=== PATIENT | male | born 1980 | race Caucasian/White ===

== ENCOUNTER 2025-05-13 13:10 | Outpatient (CLI) | payer MEDICARE, SELFPAY ==
--- OUTSIDE RECORDS SUMMARY | 2018-12-02 05:00 | XMS_ITS | Encounter Summary ---
Author Organization [place] [address] Care Team Providers Care Claims Processor Name Role Phone Clint Stauffer MD Primary Care Provider [phone] Solomon Díaz MD Unavailable [phone] Encounter Details Date Type Department Care Team (Late st Contact Info) Description 12/02/2018 5:00 AM EDT Hospital Encounter [facility] Referral Lab [address] [place] [id number] Social History Tobacco Use Types Packs/Day Years Used Date Smoking Tobacco: Former Cigarettes 1 13 1 - 06/12/2008 Smokeless Tobacco: Never Alcohol Use Standard Drinks/Week Comments Yes 0 (1 standard drink = 0.6 oz pur e alcohol) occasionally PHQ-2 Answer Date Recorded PHQ-2 Total Score 6 08/24/2023 Sex and Gender Information Value Date Recorded Sex Assigned at Not on file Legal Sex Male 8:46 PM EDT Gender Identity Not on file Sexual Orientation Not on file COVID-19 Exposure Response Date Recorded In the last 10 days, have yo u been in contact with someone who was confirmed or suspected to have Coronavirus/COVID-19? No / Unsure 02/09/2023 8:07 AM EDT documented as of this encounter Functional Status * Is the person deaf or does he/she have serious difficulty hearing? Answer Date of Assessment Author No 08/03/2016 7:03 PM EST Raman, J ennifer M, RN * Is the person blind or does he/she have serious difficulty seeing even when wearing glasses? Answer Date of Assessment Author No 08/03/2016 7:03 PM Lakeshia Campos RN * Does this person have serious difficulty walking or climbing stairs? Answer Date of Assessment Author No 08/03/2016 7:03 PM Lakeshia Campos RN * Does this person have difficulty dressing or bathing? Answer Date of Assessment Author No 08/03/2016 7:03 PM Lakeshia Campos RN * Because of a physical, mental or emotional condition, does this person have difficulty doing errands alone such as visiting a doctor's office or shopping? Answer Date of Assessment Author No 08/03/2016 7:03 PM Lakeshia Campos RN * Question Answer Date of Assessment Author Little interest or pleasure in doing things 3 08/24/2023 12:23 PM Gabino Acharya LCSW Feeling down, depressed, or hopeless 3 08/24/2023 12:23 PM Gabino Acharya LCSW PHQ-2 Total Score 6 08/24/2023 12:23 PM Emily Acharya LCSW Trouble falling or staying asleep, or sleeping too much 3 08/24/2023 12:23 PM Emily Kaplan LCSW Feeling tired or having ly le energy 3 08/24/2023 12:23 PM Gabino Acharya LCSW Poor appetite or overeating 1 08/24/2023 12 :23 PM Emily Acharya LCSW Feeling bad about yourself - or that you are a failure or have let yourself or your family down 3 08/24/2023 12:23 PM Gabino Acharya LCSW Trouble concentrating on things, such as reading the newspaper or watching television 2 08/24/2023 12:23 PM Gabino Acharya, OPTIMIZATION MANAGER Moving or speaking so slowly that other people could have noticed. Or the opposite - being so fidgety or restless that you have been moving around a lot more than usual 0 08/24/2023 12:23 PM EST Mergent yokasta, Emily R, OPTIMIZATION MANAGER Thoughts that you would be better off , or of hurting yourself in some way 0 08/24/2023 12:23 PM EST Rolando Garcia, OPTIMIZATION MANAGER PHQ-9 Total Score 18 08/24/2023 12:23 PM EST Emily Garcia, OPTIMIZATION MANAGER * Question Answer Date of Assessment Author Feeling Nervous, Anxious, or on Edge 3 08/24/2023 12:24 PM EST Jose Gabino on R, OPTIMIZATION MANAGER Not Being Able to Stop or Control Worrying 3 08/24/2023 12:24 PM EST Mergenthal Gabino on R, OPTIMIZATION MANAGER Worrying too Much About Different Things 3 08/24/2023 12:24 PM EST Costantyokasta Gabino on R, OPTIMIZATION MANAGER Trouble Relaxing 3 08/24/2023 12:24 PM EST Emily Garcia, OPTIMIZATION MANAGER Being so Restless That it is Hard to Sit Still 3 08/24/2023 12:24 PM EST Gabino Garcia on R, OPTIMIZATION MANAGER Becoming Easily Annoyed or Irritable 1 08/24/2023 12:24 PM EST Mergentyokasta Gabino on R, OPTIMIZATION MANAGER Feeling Afraid as if Something Awful Might Happen 3 08/24/2023 12:24 PM EST Emily Martines, OPTIMIZATION MANAGER TIANA-7 Total Score 19 08/24/2023 12:24 PM EST Emily Garcia, OPTIMIZATION MANAGER * Suicide Severity Rating Answer Date of Assessment Author No Risk 07/26/2024 4:07 PM Sondra Saab RN * [place] Suicide Severity Rating Scale (Q shift for moderate and high) Question Answer Date of Assessment Author 1. In the past month, have y ou wished you were or wished you could go to sleep and not wake up? 0 07/26/2024 4:07 PM Sondra Samano RN 2. In the past month, have y ou actually had any thoughts of killing yourself? (If no, skip to question 6) 0 07/26/2024 4:07 PM Sondra Saab RN 6. Have you ever done anythi ng, started to do anything, or prepared to do anything to end your life? 0 07/26/2024 4:07 PM Sondra Saab RN documented as of this encounter Mental Status * Because of a physical, mental or emotional condition, does this person have serious difficulty concentrating, remembering or making decisions? Answer Entry Date Author No 08/03/2016 7:03 PM Lakeshia Campos RN documented in this encounter Plan of Treatment Upcoming Encounters Date Type Department Care Team (Late st Contact Info) Description 07/02/2025 1:20 PM EST Telemedicine [facility] Diabetes [place] [address] [employer] [facility] [address] [place] [phone] Myriam Samuel MD [address] [employer] [facility] [address] [place] [phone] documented as of this encounter Goals Goal Patient Goal Type Associated Problems Recent Progress Patient-Stated? Author Blood Pressure < 140/90 Blood Pressure 132/84(2024 9:19 AM EDT) No Madeline Wang LPN Maintain a healthy diet, exercise regularly and maintain an ideal body weight General No Lida Dye, RN Stay Tobacco Free Lifestyle No Lida Dye RN documented as of this encounter Results * (ABNORMAL) COMPREHENSIVE METABOLIC PANEL (12/02/2018 5:27 AM EDT) Sodium 140 136 - 145 mmol/L 12/02/2018 8:58 AM EDT [facility] Potassium 4.7 3.5 - 5.0 mmol/L 12/02/2018 8:58 AM EDT [facility] Chloride 99 98 - 107 mmol/L 12/02/2018 8:58 AM EDT [facility] Total CO2 31(H) 22 - 29 mmol/L 12/02/2018 8:58 AM EDT [facility] Anion Gap 10 7 - 16 mmol/L 12/02/2018 8:58 AM EDT [facility] Calcium 9.8 8.6 - 10.4 mg/dL 12/02/2018 8:58 AM EDT [facility] Glucose Lvl 67(L) 74 - 100 mg/dL 12/02/2018 8:58 AM EDT [facility] BUN 17 6 - 20 mg/dL 12/02/2018 8:58 AM EDT [facility] Creatinine 0.92 0.67 - 1.30 mg/dL 12/02/2018 8:58 AM EDT [facility] Albumin 4.1 3.5 - 5.2 gm/dL 12/02/2018 8:58 AM EDT [facility] Total Protein 6.8 6.4 - 8.3 gm/dL 12/02/2018 8:58 AM EDT [facility] Bili Total 0.5 0.1 - 1.4 mg/dL 12/02/2018 8:58 AM EDT [facility] ALT 148(H) <=41 IU/L 12/02/2018 8:58 AM EDT [facility] AST 79(H) <=40 IU/L 12/02/2018 8:58 AM EDT [facility] Alk Phos 69 40 - 129 IU/L 12/02/2018 8:58 AM EDT [facility] GFR Afr Am 121 >=60 mL/min/1.7 3 m2 12/02/2018 8:58 AM EDT [facility] GFR Non Afr Am 104 >=60 mL/min/1.7 3 m2 12/02/2018 8:58 AM EDT [facility] Comment: This estimated GFR was calculated using CKD-EPI equation which is modified based on ethnicity for Non Americans and Americans. Both results are reported since it is not always possible to determine the patient's ethnicity. This equation should only be used for individuals 18 and older. It has not been validated for use with the elderly (>70 years), women, or in some racial or ethnic subgroups, such as Hispanics. The equation will be less accurate in people with differences in nutritional status or muscle mass. Blood 12/02/2018 5:27 AM EDT 12/02/2018 8:07 AM EDT us U Unknown CHEMISTRY ORDERABLES Final Resul t [facility] , [address] [place] [id number] documented in this encounter Visit Diagnoses Not on filedocumented in this encounter Care Teams Claims Processor Relationship Specialty Start Date End Date Clint Stauffer MD [address] [place] [address] PCP - General 08/20/10 Solomon Díaz MD [address] [place] [address] Internal Medicine-Gastroenterolog y 03/29/13 documented as of this encounter
--- OUTSIDE RECORDS SUMMARY | 2018-12-02 05:00 | XMS_ITS | Encounter Summary ---
Author Organization [place] [address] Care Team Providers Care Taxation Economist Name Role Phone Clint Stauffer MD Primary Care Provider [phone] Solomon Díaz MD Unavailable [phone] Encounter Details Date Type Department Care Team (Late st Contact Info) Description 12/02/2018 5:00 AM EDT Hospital Encounter [facility] Referral Lab [address] [place] [id number] Social History Tobacco Use Types Packs/Day Years [...] television 2 08/24/2023 12:23 PM Gabino Acharya, ASSET PROTECTION PROFESSIONAL Moving or speaking so slowly that other people could have noticed. Or the opposite - being so fidgety or restless that you have been moving around a lot more than usual 0 08/24/2023 12:23 PM EST Mergent yokasta, Emily R, ASSET PROTECTION PROFESSIONAL Thoughts that you would be better off , or of hurting yourself in some way 0 08/24/2023 12:23 PM EST Rolando Garcia, ASSET PROTECTION PROFESSIONAL PHQ-9 Total Score 18 08/24/2023 12:23 PM EST Emily Garcia, ASSET PROTECTION PROFESSIONAL * Question Answer Date of Assessment Author Feeling Nervous, Anxious, or on Edge 3 08/24/2023 12:24 PM EST Jose Gabino on R, ASSET PROTECTION PROFESSIONAL Not Being Able to Stop or Control Worrying 3 08/24/2023 12:24 PM EST Mergenthal Gabino on R, ASSET PROTECTION PROFESSIONAL Worrying too Much About Different Things 3 08/24/2023 12:24 PM EST Costantyokasta Gabino on R, ASSET PROTECTION PROFESSIONAL Trouble Relaxing 3 08/24/2023 12:24 PM EST Emily Garcia, ASSET PROTECTION PROFESSIONAL Being so Restless That it is Hard to Sit Still 3 08/24/2023 12:24 PM EST Gabino Garcia on R, ASSET PROTECTION PROFESSIONAL Becoming Easily Annoyed or Irritable 1 08/24/2023 12:24 PM EST Mergentyokasta Gabino on R, ASSET PROTECTION PROFESSIONAL Feeling Afraid as if Something Awful Might Happen 3 08/24/2023 12:24 PM EST Emily Martines, ASSET PROTECTION PROFESSIONAL TIANA-7 Total Score 19 08/24/2023 12:24 PM EST Emily Garcia, ASSET PROTECTION PROFESSIONAL * Suicide Severity Rating Answer Date of Assessment Author No Risk 07/26/2024 4:07 PM Sondra Saab RN * [place] Suicide Severity Rating Scale (Q shift for [...] Info) Description 07/02/2025 1:20 PM EST Telemedicine [facility] Diabetes [place] [address] [address] Myriam Samuel MD [address] [address] documented as of this encounter Goals Goal Patient Goal Type Associated Problems Recent Progress Patient-Stated? Author Blood Pressure < 140/90 Blood Pressure 132/84(2024 9:19 AM EDT) No Madeline Wang LPN Maintain a healthy diet, exercise regularly and maintain an ideal body weight General No Lida Dye, RN Stay Tobacco Free Lifestyle No Lida Dye RN documented as of this encounter Results * PREALBUMIN (12/02/2018 5:27 AM EDT) Prealbumin 32.6 20.0 - 40.0 mg/dL 12/02/2018 9:00 AM EDT I AM AT Blood 12/02/2018 5:27 AM EDT 12/02/2018 8:07 AM EDT us U Unknown CHEMISTRY ORDERABLES Final Resul t I AM AT [address], [place] [address] documented in this encounter Visit Diagnoses Not on filedocumented in this encounter Care Teams Taxation Economist Relationship Specialty Start Date End Date Clint Stauffer MD [address] [place] [address] PCP - General 08/20/10 Solomon Díaz MD [address] [place] [address] Internal Medicine-Gastroenterolog y 03/29/13 documented as of this encounter
--- OUTSIDE RECORDS SUMMARY | 2018-12-06 09:25 | XMS_ITS | Encounter Summary ---
Author Organization [place] [address] Care Team Providers Care Lead Quality Control Technician Name Role Phone Clint Stauffer MD Primary Care Provider [phone]- [phone] Solomon Díaz MD Unavailable [phone] Encounter Details Date Type Department Care Team (Late st Contact Info) Description 12/06/2018 9:25 AM EDT Hospital Encounter [facility] Referral Lab [address] [place] [id number] Social History Tobacco Use Types Packs/Day Years [...] television 2 08/24/2023 12:23 PM Gabino Acharya, DIRECTOR EMPLOYEE COMMUNICATIONS Moving or speaking so slowly that other people could have noticed. Or the opposite - being so fidgety or restless that you have been moving around a lot more than usual 0 08/24/2023 12:23 PM EST Mergent yokasta, Emily R, DIRECTOR EMPLOYEE COMMUNICATIONS Thoughts that you would be better off , or of hurting yourself in some way 0 08/24/2023 12:23 PM EST Rolando Garcia, DIRECTOR EMPLOYEE COMMUNICATIONS PHQ-9 Total Score 18 08/24/2023 12:23 PM EST Emily Garcia, DIRECTOR EMPLOYEE COMMUNICATIONS * Question Answer Date of Assessment Author Feeling Nervous, Anxious, or on Edge 3 08/24/2023 12:24 PM EST Jose Gabino on R, DIRECTOR EMPLOYEE COMMUNICATIONS Not Being Able to Stop or Control Worrying 3 08/24/2023 12:24 PM EST Mergenthal Gabino on R, DIRECTOR EMPLOYEE COMMUNICATIONS Worrying too Much About Different Things 3 08/24/2023 12:24 PM EST Costantyokasta Gabino on R, DIRECTOR EMPLOYEE COMMUNICATIONS Trouble Relaxing 3 08/24/2023 12:24 PM EST Emily Garcia, DIRECTOR EMPLOYEE COMMUNICATIONS Being so Restless That it is Hard to Sit Still 3 08/24/2023 12:24 PM EST Gabino Garcia on R, DIRECTOR EMPLOYEE COMMUNICATIONS Becoming Easily Annoyed or Irritable 1 08/24/2023 12:24 PM EST Mergentyokasta Gabino on R, DIRECTOR EMPLOYEE COMMUNICATIONS Feeling Afraid as if Something Awful Might Happen 3 08/24/2023 12:24 PM EST Emily Martines, DIRECTOR EMPLOYEE COMMUNICATIONS TIANA-7 Total Score 19 08/24/2023 12:24 PM EST Emily Garcia, DIRECTOR EMPLOYEE COMMUNICATIONS * Suicide Severity Rating Answer Date of Assessment Author No Risk 07/26/2024 4:07 PM Sondra Saab RN * [place] Suicide Severity Rating Scale (Q shift for [...] Info) Description 07/02/2025 1:20 PM EST Telemedicine [facility] Diabetes [place] [address] [employer] [facility] [address] [place] [address] Myriam Samuel MD [address] [employer] [facility] [address] [place] [phone] documented as of this encounter Goals [...] as of this encounter Results * (ABNORMAL) CBC WITH DIFF (12/06/2018 11:05 AM EDT) WBC 13.5(H) 3.7 - 10.3 x10(3)/mcL 12/06/2018 12:46 PM EDT [facility] RBC 5.01 4.60 - 6.10 x10(6)/mcL 12/06/2018 12:46 PM EDT [facility] Hgb 15.4 13.7 - 17.5 g/dL 12/06/2018 12:46 PM EDT [facility] Hct 45.0 40.0 - 51.0 % 12/06/2018 12:46 PM EDT [facility] MCV 89.8 79.0 - 98.0 fL 12/06/2018 12:46 PM EDT [facility] MCH 30.7 26.0 - 32.0 pg 12/06/2018 12:46 PM EDT [facility] MCHC 34.2 30.7 - 35.5 g/dL 12/06/2018 12:46 PM EDT [facility] RDW 12.3 <=14.9 % 12/06/2018 12:46 PM EDT [facility] Platelet 442(H) 155 - 369 x10(3)/mcL 12/06/2018 12:46 PM EDT [facility] MPV 9.3 8.8 - 12.5 fL 12/06/2018 12:46 PM EDT [facility] Neut Percent 62.8 % 12/06/2018 12:46 PM EDT [facility] Comment:Neutrophils equals s egs plus bands Imm Gran% 1.0 % 12/06/2018 12:46 PM EDT [facility] Comment:Automated count of m etamyelocytes, myelocytes and promyelocytes. Lymph Percent 24.4 % 12/06/2018 12:46 PM EDT [facility] Sampson Percent 9.6 % 12/06/2018 12:46 PM EDT [facility] Eos Percent 1.7 % 12/06/2018 12:46 PM EDT [facility] Baso Percent 0.5 % 12/06/2018 12:46 PM EDT [facility] Neut # 8.5(H) 1.6 - 6.1 x10(3)/mcL 12/06/2018 12:46 PM EDT [facility] Comment:Neutrophils equals s egs plus bands IMMGRAN# 0.1 0.0 - 0.1 x10(3)/mcL 12/06/2018 12:46 PM EDT [facility] Comment:Automated count of m etamyelocytes, myelocytes and promyelocytes. An absolute IG <0.1 is reported as 0.0. Lymph # 3.3 1.2 - 3.9 x10(3)/mcL 12/06/2018 12:46 PM EDT [facility] Sampson # 1.3(H) 0.3 - 0.9 x10(3)/mcL 12/06/2018 12:46 PM EDT [facility] Eos# 0.2 0.0 - 0.5 x10(3)/mcL 12/06/2018 12:46 PM EDT [facility] # 0.1 0.0 - 0.1 x10(3)/mcL 12/06/2018 12:46 PM EDT [facility] Venipuncture / Unknown 12/06/2018 11:05 AM EDT 12/06/2018 12:35 PM EDT us U Unknown HEMATOLOGY ORDERABLES Final Resu lt [facility] [address] [facility] , [place] [address] documented in this encounter Visit Diagnoses Not on filedocumented in this encounter Care Teams Lead Quality Control Technician Relationship Specialty Start Date End Date Clint Stauffer MD [address] [place] [address] PCP - General 08/20/10 Solomon Díaz MD [address] [place] [address] Internal Medicine-Gastroenterolog y 03/29/13 documented as of this encounter
--- OUTSIDE RECORDS SUMMARY | 2018-12-07 14:55 | XMS_ITS | Encounter Summary ---
Author Organization [place] [address] Care Team Providers Care Php Architect Name Role Phone Clint Stauffer MD Primary Care Provider [phone]- [phone] Solomon Díaz MD Unavailable [phone] Encounter Details Date Type Department Care Team (Late st Contact Info) Description 12/07/2018 2:55 PM EDT Hospital Encounter [facility] Referral Lab [address] [place] [id number] Social History Tobacco Use Types Packs/Day Years [...] television 2 08/24/2023 12:23 PM Gabino Acharya, REPLANTING MACHINE CREW Moving or speaking so slowly that other people could have noticed. Or the opposite - being so fidgety or restless that you have been moving around a lot more than usual 0 08/24/2023 12:23 PM EST Mergent yokasta, Emily R, REPLANTING MACHINE CREW Thoughts that you would be better off , or of hurting yourself in some way 0 08/24/2023 12:23 PM EST Rolando Garcia, REPLANTING MACHINE CREW PHQ-9 Total Score 18 08/24/2023 12:23 PM EST Emily Garcia, REPLANTING MACHINE CREW * Question Answer Date of Assessment Author Feeling Nervous, Anxious, or on Edge 3 08/24/2023 12:24 PM EST Jose Gabino on R, REPLANTING MACHINE CREW Not Being Able to Stop or Control Worrying 3 08/24/2023 12:24 PM EST Mergenthal Gabino on R, REPLANTING MACHINE CREW Worrying too Much About Different Things 3 08/24/2023 12:24 PM EST Costantyokasta Gabino on R, REPLANTING MACHINE CREW Trouble Relaxing 3 08/24/2023 12:24 PM EST Emily Garcia, REPLANTING MACHINE CREW Being so Restless That it is Hard to Sit Still 3 08/24/2023 12:24 PM EST Gabino Garcia on R, REPLANTING MACHINE CREW Becoming Easily Annoyed or Irritable 1 08/24/2023 12:24 PM EST Mergentyokasta Gabino on R, REPLANTING MACHINE CREW Feeling Afraid as if Something Awful Might Happen 3 08/24/2023 12:24 PM EST Emily Martines, REPLANTING MACHINE CREW TIANA-7 Total Score 19 08/24/2023 12:24 PM EST Emily Garcia, REPLANTING MACHINE CREW * Suicide Severity Rating Answer Date of Assessment Author No Risk 07/26/2024 4:07 PM Sondra Saab RN * [place] Suicide Severity Rating Scale (Q shift for [...] end your life? 0 07/26/2024 4:07 PM EST Sondra Gunter RN documented as of this encounter Mental Status * Because of a physical, mental or emotional condition, does this person have serious difficulty concentrating, remembering or making decisions? Answer Entry Date Author No 08/03/2016 7:03 PM Lakeshia Campos RN documented in this encounter Plan of Treatment Upcoming Encounters Date Type Department Care Team (Late st Contact Info) Description 07/02/2025 1:20 PM EST Telemedicine [facility] Diabetes [place] [address] [facility] [address] [place] [phone] Myriam Samuel MD [address] [phone] documented as of this encounter [...] documented as of this encounter Results * URINE CULTURE (NO STAIN) (12/07/2018 3:30 PM EDT) Culture No growth at 30 hours. 12/09/2018 8:16 AM EDT [facility] Urine 12/07/2018 3:30 PM EDT 12/07/2018 10:49 PM EDT us U Unknown MICROBIOLOGY - GENERAL ORDERABLE S Final Result [facility] [address] [facility] [address], [place] [address] documented in this encounter Visit Diagnoses Not on filedocumented in this encounter Care Teams Php Architect Relationship Specialty Start Date End Date Clint Stauffer MD [address] [place] [address] PCP - General 08/20/10 Solomon Díaz MD [address] [place] [address] Internal Medicine-Gastroenterolog y 03/29/13 documented as of this encounter
--- OUTSIDE RECORDS SUMMARY | 2018-12-07 14:55 | XMS_ITS | Encounter Summary ---
Author Organization [place] [address] Care Team Providers Care Seafood Harvester Name Role Phone Clint Stauffer MD Primary Care Provider [phone] Solomon Díaz MD Unavailable [phone] Encounter Details Date Type Department Care Team (Latest Contact Info) Description 12/07/2018 2:55 PM EDT Hospital Encounter [facility] Referral Lab [address] [place] [address] Routine general medical examination at health care facility (Primary Dx) Social History Tobacco Use Types Packs/Day Years [...] 08/03/2016 7:03 PM Lakeshia Campos RN * Is the person blind or [...] or hopeless 3 08/24/2023 12:23 PM Gabino Acharya, ENERGY CROP FARMER PHQ-2 Total Score 6 08/24/2023 12:23 PM [...] family down 3 08/24/2023 12:23 PM Gabino Acharya, ENERGY CROP FARMER Trouble concentrating on things, such as reading the newspaper or watching television 2 08/24/2023 12:23 PM Gabino Acharya R, ENERGY CROP FARMER Moving or speaking so slowly that other people could have noticed. Or the opposite - being so fidgety or restless that you have been moving around a lot more than usual 0 08/24/2023 12:23 PM EST Emily Martines R, ENERGY CROP FARMER Thoughts that you would be better off , or of hurting yourself in some way 0 08/24/2023 12:23 PM EST Rolando Garcia, ENERGY CROP FARMER PHQ-9 Total Score 18 08/24/2023 12:23 PM EST Emily Garcia, ENERGY CROP FARMER * Question Answer Date of Assessment Author Feeling Nervous, Anxious, or on Edge 3 08/24/2023 12:24 PM EST Mergenthal Gabino on R, ENERGY CROP FARMER Not Being Able to Stop or Control Worrying 3 08/24/2023 12:24 PM EST Mergenthal, Gabino on R, ENERGY CROP FARMER Worrying too Much About Different Things 3 08/24/2023 12:24 PM EST Costanthal Gabino on R, ENERGY CROP FARMER Trouble Relaxing 3 08/24/2023 12:24 PM EST Emily Garcia, ENERGY CROP FARMER Being so Restless That it is Hard to Sit Still 3 08/24/2023 12:24 PM EST Jose Gabino on R, ENERGY CROP FARMER Becoming Easily Annoyed or Irritable 1 08/24/2023 12:24 PM EST Mergenthal, Gabino on R, ENERGY CROP FARMER Feeling Afraid as if Something Awful Might Happen 3 08/24/2023 12:24 PM EST Emily Martines, ENERGY CROP FARMER TIANA-7 Total Score 19 08/24/2023 12:24 PM EST Emily Garcia, ENERGY CROP FARMER * Suicide Severity Rating Answer Date of Assessment Author No Risk 07/26/2024 4:07 PM Sondra Saab RN * [place] Suicide Severity Rating Scale (Q shift for [...] Entry Date Author No 08/03/2016 7:03 PM EST Lakeshia Camargo RN documented in this encounter Plan of Treatment Upcoming Encounters Date Type Department Care Team (Late st Contact Info) Description 07/02/2025 1:20 PM EST Telemedicine [facility] Diabetes [place] [address] [facility] [address] [place] [address] Myriam Samuel MD 1500 [facility] [address] [place] [address] documented as of this encounter Goals Goal Patient Goal Type Associated Problems Recent Progress Patient-Stated? Author Blood Pressure < 140/90 Blood Pressure 132/84(2024 9:19 AM EDT) No Madeline Wang LPN Maintain a healthy diet, exercise regularly and maintain an ideal body weight General No Lida Dye, ADELINE Stay Tobacco Free Lifestyle No Lida Dye RN documented as of this encounter Procedures Procedure Name Priority Date/Time Associated Diagnosis Comments DRUGS OF ABUSE, SCREEN ONLY, URINE Routine 12/07/2018 3:30 PM EDT Routine general medical examination at health care facility URINALYSIS [facility] 12/07/2018 3:30 PM EDT URINE CULTURE (NO STAIN) [facility] 12/07/2018 3:30 PM EDT documented in this encounter Results * URINE CULTURE (NO STAIN) (12/07/2018 3:30 PM EDT) Culture No growth at 30 hours. 12/09/2018 8:16 AM EDT [facility] tracx Urine 12/07/2018 3:30 PM EDT 12/07/2018 10:49 PM EDT us U Unknown MICROBIOLOGY - GENERAL ORDERABLE S Final Result [facility] [address] [facility] [facility] , [address] [place] [id number] * (ABNORMAL) DRUGS OF ABUSE, SCREEN ONLY, URINE (12/07/2018 3:30 PM EDT) 6 AM (Heroin) Absent Cutoff 10 ng/mL 12/08/2018 12:02 AM EDT [facility] Amphetamines Absent Cutoff 500 ng/mL 12/08/2018 12:02 AM EDT [facility] Barbiturates Absent Cutoff 200 ng/mL 12/08/2018 12:02 AM EDT [facility] Benzodiazepines Absent Cutoff 200 ng/mL 12/08/2018 12:02 AM EDT [facility] Buprenorphine Absent Cutoff 5 ng/mL 12/08/2018 12:02 AM EDT [facility] Cannabinoid Metabolite Absent Cutoff 50 ng/mL 12/08/2018 12:02 AM EDT [facility] Cocaine Metabolite Absent Cutoff 150 ng/mL 12/08/2018 12:02 AM EDT [facility] Methadone and Metabolite Absent Cutoff 300 ng/mL 12/08/2018 12:02 AM EDT [facility] Opiate Absent Cutoff 300 ng/mL 12/08/2018 12:02 AM EDT [facility] Oxycodone Lvl Presumptive Pos(A) Cutoff 100 ng/mL 12/08/2018 12:02 AM EDT [facility] Phencyclidine Absent 12/08/2018 12:02 AM EDT [facility] Creatinine Ur >25.0 mg/dL 12/08/2018 12:02 AM EDT [facility] Comment: Greater than 20: Consistent with valid sample Greater than 2 but less than 20: Possible dilution Less than 2: Questionable valid sample Urine 12/07/2018 3:30 PM EDT 12/07/2018 10:49 PM EDT Narrative [facility] - 12/08/2018 12:02 AM EDT These drug classes have been qualitatively screened by immunoassay and are for medical purposes only. Results reported as presumptive positive have not been confirmed. If results don t reflect the clinical picture, the prescribed medication, or the discussion with the patient, confirmation testing is recommended on the ORIGINAL urine. All urine specimens for drug testing are held for 7 days. If confirmation testing is desired, call the Lab [facility]. Due to possible factors, such as, dilute/adulterated urine, concentration of drug/metabolite being below the cut-off, or antibody specificity of test reagent, a negative result does not rule out drug use. These results are only valid for urine specimens. Any contamination with vaginal pool/amniotic fluid could cause erroneous results. us Ndaer Nunez MD URINE ORDERABLES Final Res ult [facility] [address] [facility] , [address] [place] [id number] * (ABNORMAL) URINALYSIS (12/07/2018 3:30 PM EDT) UA Color Yellow 12/07/2018 11:51 PM EDT [facility] [employer] [facility], [facility] UA Appear Clear Clear 12/07/2018 11:51 PM EDT [facility] [employer], [facility] UA Glucose Negative Negative mg/dL 12/07/2018 11:51 PM EDT [employer] [facility] UA Ketones Negative Negative mg/dL 12/07/2018 11:51 PM EDT [facility] [employer], [facility] UA Blood Small(A) Negative 12/07/2018 11:51 PM EDT [facility] [employer], [facility] UA pH 6.0 5.0 - 8.0 pH 12/07/2018 11:51 PM EDT [facility] [employer], [facility] UA Protein Negative Negative mg/dL 12/07/2018 11:51 PM EDT [facility] [employer], [facility] UA Urobilinogen Normal <=1 mg/dL 9 11:51 PM EDT [facility] [employer] UA Bili Negative Negative 12/07/2018 11:51 PM EDT [facility] [employer], [facility] UA Nitrite Negative Negative 12/07/2018 11:51 PM EDT [facility] [employer], [facility] UA Leuk Est Negative Negative 12/07/2018 11:51 PM EDT [facility] [employer] [facility] UA Spec Grav 1.021 1.001 - 1.035 no units 12/07/2018 11:51 PM EDT [facility] [employer], [facility] Comment: Reference range valid for random specimens only. UA WBC <1 0 - 4 /HPF 12/07/2018 11:51 PM EDT [facility] [employer] UA RBC 4(H) 0 - 3 /HPF 12/07/2018 11:51 PM EDT [facility] [facility] UA Mucus Trace /LPF 12/07/2018 11:51 PM EDT [facility] [employer] Urine 12/07/2018 3:30 PM EDT 12/07/2018 10:49 PM EDT us U Unknown URINE ORDERABLES Final Result [facility] [employer] [address] [facility], [place] [address] documented in this encounter Visit Diagnoses Diagnosis Routine general medical examination at health care facility- Primary Routine general medical examination at a health care facility documented in this encounter Care Teams Seafood Harvester Relationship Specialty Start Date End Date Clint Stauffer MD [address] [place] [address] PCP - General 08/20/10 Solomon Díaz MD [address] [place] [address] Internal Medicine-Gastroenterolog y 03/29/13 documented as of this encounter
--- OUTSIDE RECORDS SUMMARY | 2018-12-07 16:00 | XMS_ITS | Encounter Summary ---
Author Organization [place] [address] Care Team Providers Care Ranch Manager Name Role Phone Clint Stauffer MD Primary Care Provider [phone]- [phone] Solomon Díaz MD Unavailable [phone] Encounter Details Date Type Department Care Team (Late st Contact Info) Description 12/07/2018 4:00 PM EDT [facility] Ref[facility] Lab 1 [place] [id number] Social History Tobacco Use Types Packs/Day Years [...] television 2 08/24/2023 12:23 PM Gabino Acharya, AIRCRAFT MAINTENANCE MANAGER Moving or speaking so slowly that other people could have noticed. Or the opposite - being so fidgety or restless that you have been moving around a lot more than usual 0 08/24/2023 12:23 PM EST Mergent yokasta, Emily R, AIRCRAFT MAINTENANCE MANAGER Thoughts that you would be better off , or of hurting yourself in some way 0 08/24/2023 12:23 PM EST Rolando Garcia, AIRCRAFT MAINTENANCE MANAGER PHQ-9 Total Score 18 08/24/2023 12:23 PM EST Emily Garcia, AIRCRAFT MAINTENANCE MANAGER * Question Answer Date of Assessment Author Feeling Nervous, Anxious, or on Edge 3 08/24/2023 12:24 PM EST Jose Gabino on R, AIRCRAFT MAINTENANCE MANAGER Not Being Able to Stop or Control Worrying 3 08/24/2023 12:24 PM EST Mergenthal Gabino on R, AIRCRAFT MAINTENANCE MANAGER Worrying too Much About Different Things 3 08/24/2023 12:24 PM EST Costantyokasta Gabino on R, AIRCRAFT MAINTENANCE MANAGER Trouble Relaxing 3 08/24/2023 12:24 PM EST Emily Garcia, AIRCRAFT MAINTENANCE MANAGER Being so Restless That it is Hard to Sit Still 3 08/24/2023 12:24 PM EST Gabino Garcia on R, AIRCRAFT MAINTENANCE MANAGER Becoming Easily Annoyed or Irritable 1 08/24/2023 12:24 PM EST Mergentyokasta Gabino on R, AIRCRAFT MAINTENANCE MANAGER Feeling Afraid as if Something Awful Might Happen 3 08/24/2023 12:24 PM EST Emily Martines, AIRCRAFT MAINTENANCE MANAGER TIANA-7 Total Score 19 08/24/2023 12:24 PM EST Emily Garcia, AIRCRAFT MAINTENANCE MANAGER * Suicide Severity Rating Answer Date of Assessment Author No Risk 07/26/2024 4:07 PM Sondra Saab RN * [place] Suicide Severity Rating Scale (Q shift for [...] Info) Description 07/02/2025 1:20 PM EST Telemedicine [facility] Diabetes [place] [address] [facility] [address] [place] [phone] Myriam Samuel MD 1500 [facility] [address] [place] [phone] documented as of this encounter Goals [...] encounter Results * (ABNORMAL) CBC WITH DIFF (12/07/2018 3:30 PM EDT) WBC 10.3 3.7 - 10.3 x10(3)/mcL 12/07/2018 11:38 PM EDT [facility] RBC 4.94 4.60 - 6.10 x10(6)/mcL 12/07/2018 11:38 PM EDT [facility] Hgb 15.4 13.7 - 17.5 g/dL 12/07/2018 11:38 PM EDT [facility] Hct 46.2 40.0 - 51.0 % 12/07/2018 11:38 PM EDT [facility] MCV 93.5 79.0 - 98.0 fL 12/07/2018 11:38 PM EDT [facility] MCH 31.2 26.0 - 32.0 pg 12/07/2018 11:38 PM EDT [facility] MCHC 33.3 30.7 - 35.5 g/dL 12/07/2018 11:38 PM EDT [facility] RDW 12.7 <=14.9 % 12/07/2018 11:38 PM EDT [facility] Platelet 414(H) 155 - 369 x10(3)/mcL 12/07/2018 11:38 PM EDT [facility] MPV 9.6 8.8 - 12.5 fL 12/07/2018 11:38 PM EDT [facility] Neut Percent 57.9 % 12/07/2018 11:38 PM EDT [facility] Comment:Neutrophils equals s egs plus bands Imm Gran% 1.2 % 12/07/2018 11:38 PM EDT [facility], [facility] Comment:Automated count of m etamyelocytes, myelocytes and promyelocytes. IG >1% represents a left shift and provides an early indication of an infection or inflammatory process. Lymph Percent 28.9 % 12/07/2018 11:38 PM EDT [facility] Iosco Percent 8.9 % 12/07/2018 11:38 PM EDT [facility] Eos Percent 2.5 % 12/07/2018 11:38 PM EDT [facility] Baso Percent 0.6 % 12/07/2018 11:38 PM EDT [facility], [facility] Neut # 6.0 1.6 - 6.1 x10(3)/mcL 12/07/2018 11:38 PM EDT [facility] Comment:Neutrophils equals s egs plus bands IMMGRAN# 0.1 0.0 - 0.1 x10(3)/mcL 12/07/2018 11:38 PM EDT [facility] Comment:Automated count of m etamyelocytes, myelocytes and promyelocytes. An absolute IG <0.1 is reported as 0.0. Lymph # 3.0 1.2 - 3.9 x10(3)/mcL 12/07/2018 11:38 PM EDT [facility] Iosco # 0.9 0.3 - 0.9 x10(3)/mcL 12/07/2018 11:38 PM EDT [facility] Eos# 0.3 0.0 - 0.5 x10(3)/mcL 12/07/2018 11:38 PM EDT [facility] Baso # 0.1 0.0 - 0.1 x10(3)/mcL 12/07/2018 11:38 PM EDT [facility] Blood Venipuncture / Unknown 12/07/2018 3:30 PM EDT 12/07/2018 10:30 PM EDT us U Unknown HEMATOLOGY ORDERABLES Final Resu lt [facility] [address] [facility] , [place] [address] documented in this encounter Visit Diagnoses Not on filedocumented in this encounter Care Teams Ranch Manager Relationship Specialty Start Date End Date Clint Stauffer MD [address] [place] [address] PCP - General 08/20/10 Solomon Díaz MD [address] [place] [address] Internal Medicine-Gastroenterolog y 03/29/13 documented as of this encounter
--- OUTSIDE RECORDS SUMMARY | 2018-12-08 05:00 | XMS_ITS | Encounter Summary ---
Author Organization [place] [address] Care Team Providers Care Medical Investigator Name Role Phone Clint Stauffer MD Primary Care Provider [phone] Solomon Díaz MD Unavailable Encounter Details Date Type Department Care Team (Late st Contact Info) Description 12/08/2018 5:00 AM EDT Hospital Encounter [facility] Referral Lab 1 [place] [id number] Social History Tobacco Use Types Packs/Day Years [...] television 2 08/24/2023 12:23 PM Gabino Acharya, LEVEE SUPERINTENDENT Moving or speaking so slowly that other people could have noticed. Or the opposite - being so fidgety or restless that you have been moving around a lot more than usual 0 08/24/2023 12:23 PM EST Mergent yokasta, Emily R, LEVEE SUPERINTENDENT Thoughts that you would be better off , or of hurting yourself in some way 0 08/24/2023 12:23 PM EST Rolando Garcia, LEVEE SUPERINTENDENT PHQ-9 Total Score 18 08/24/2023 12:23 PM EST Emily Garcia, LEVEE SUPERINTENDENT * Question Answer Date of Assessment Author Feeling Nervous, Anxious, or on Edge 3 08/24/2023 12:24 PM EST Jose Gabino on R, LEVEE SUPERINTENDENT Not Being Able to Stop or Control Worrying 3 08/24/2023 12:24 PM EST Mergenthal Gabino on R, LEVEE SUPERINTENDENT Worrying too Much About Different Things 3 08/24/2023 12:24 PM EST Costantyokasta Gabino on R, LEVEE SUPERINTENDENT Trouble Relaxing 3 08/24/2023 12:24 PM EST Emily Garcia, LEVEE SUPERINTENDENT Being so Restless That it is Hard to Sit Still 3 08/24/2023 12:24 PM EST Gabino Garcia on R, LEVEE SUPERINTENDENT Becoming Easily Annoyed or Irritable 1 08/24/2023 12:24 PM EST Mergentyokasta Gabino on R, LEVEE SUPERINTENDENT Feeling Afraid as if Something Awful Might Happen 3 08/24/2023 12:24 PM EST Emily Martines, LEVEE SUPERINTENDENT TIANA-7 Total Score 19 08/24/2023 12:24 PM EST Emily Garcia, LEVEE SUPERINTENDENT * Suicide Severity Rating Answer Date of Assessment Author No Risk 07/26/2024 4:07 PM Sondra Saab RN * [place] Suicide Severity Rating Scale (Q shift for [...] Info) Description 07/02/2025 1:[address] [facility] Diabetes [place] [address] [facility] [address] [place] [id number] Myriam Samuel MD [address] [address] Scheduled Orders Name Type Priority Associated Diagnoses Orde r Schedule DRUGS OF ABUSE, SCREEN ONLY, URINE Lab Routine ONCE for [facility] 12/08/2018 until 01/12/2019 documented as of this encounter Goals Goal Patient Goal Type Associated Problems Recent Progress Patient-Stated? Author Blood Pressure < 140/90 Blood Pressure 132/84(2024 9:19 AM EDT) No Madeline Wang LPN Maintain a healthy diet, exercise regularly and maintain an ideal body weight General No Lida Dye, ADELINE Stay Tobacco Free Lifestyle No Lida Dye RN documented as of this encounter Visit Diagnoses Not on filedocumented in this encounter Care Teams Medical Investigator Relationship Specialty Start Date End Date Clint Stauffer MD [address] [place] [address] PCP - General 08/20/10 Solomon Díaz MD [address] [place] [address] Internal Medicine-Gastroenterolog y 03/29/13 documented as of this encounter
--- NOTE | 2025-05-13 13:00 | CA_ITS ---
APPROVED REPORT EXAM: Comprehensive 2D, Doppler, and color-flow Echocardiogram Process Coach: Patricia Joy RT(R) Ht: 6 ft 0 in Wt: 224lbs BSA: 2.24 BP: 148/80 mmHg Indications: murmur, hypertension, edema. 2D Dimensions Left Atrium 3.51 cm M: 3.0 - 4.0 LVEF (Stout's) 47.30 % M: 52 - 72 LVOT 1.99 cm (M/F) 1.5-2.5 LV Volume 119.60 mL M: 62 - 150 LV Volume Index 53.4 mL/m2 M: 34 - 74 LA Volume 17.80 mL LA Volume Index 7.95 mL/m2 (M/F) 16-34 EF AP4 45.50 % EF AP2 46.8 % EF BP 47.3 % GL Strain -16.2 % M-Mode Dimensions RVDd 3.26 cm (0.9-2.6) LVDd 4.41 cm (3.5-5.7) Ao Diam 2.74 cm (2.0-3.7) LVDs 3.14 cm (3.5-5.7) IVSd 0.95 cm (0.6-1.1) PWd 0.95 cm (0.6-1.1) EF (Teich) 55.70% FS 28.80% EDV (Teich) 88.20 mL ESV (Teich) 39.10 mL LV Diastology E Decel Time 222 (160-240 msec) E/A Ratio 1.1 MED E' 7.1 (>= 7 cm/sec) E'/MED E' Ratio 9.66 (<= 14) LAT E' 14.2 (>= 10 cm/sec) E/LAT E' Ratio 4.83 (<= 14) Aortic Valve LVOT Max 124.0 (70-110 cm/s) JULIETTE Index 1.10 cm2/m2 LVOT VTI 25.13 cm AoV Peak Sushant. 168.0 (50-130 cm/s) AI PHT 554.00 ms AO Mean GR. 5.50 (<5 mmHg) AO VTI 31.7 (18-25 cm) JULIETTE (VTI) 2.46 (2.5-4.5 cm2) Mitral Valve MV E Max Sushant. 69.0 (40-130 cm/s) MV A Velocity 60.0 (40-130 cm/s) E/A Ratio 1.14 MV Decel. Time 222 (160-240 ms) Left Ventricle The left ventricle is normal size. Left ventricular systolic function is normal. The left ventricular ejection fraction is within the normal range. There is increased left ventricular wall thickness. There is normal LV segmental wall motion. The left ventricular diastolic function is normal. LVEF is 55% Right Ventricle The right ventricle is normal size. The right ventricular systolic function is normal. Atria The left atrium size is normal. The right atrium size is normal. There is no color Doppler evidence of interatrial shunt. Aortic Valve The aortic valve opens well. There is no hemodynamically significant aortic valvular stenosis. Mild aortic regurgitation is present. Mitral Valve The mitral valve is normal in structure. No evidence of mitral valve stenosis. Trace mitral regurgitation is present. Tricuspid Valve The tricuspid valve leaflets are thin and pliable. Mild tricuspid regurgitation. RVSP is 20-25 mmHg. Pulmonic Valve The pulmonary valve is grossly normal in structure. Trace pulmonic valve regurgitation is present. Great Vessels The aortic root is normal in size. IVC is normal in size and collapses >50% with inspiration. Pericardium There is no pericardial effusion. Other Information Study Quality: Fair Conclusion Normal biventricular systolic function. Mild AI, mild TR. Electronically signed by : Abi Aggarwal MD 05/13/2025 14:26:07
--- OUTSIDE RECORDS SUMMARY | 2025-05-13 13:14 | XMS_ITS | Encounter Summary ---
Author Organization [place] [address] Care Team Providers Care Batching Operator Name Role Phone Clint Stauffer MD Primary Care Provider [phone]- [phone] Solomon Díaz MD Unavailable [phone] Reason for Visit * Reason Onset Date Comments Medication Refill 05/02/2025 Encounter Details Date Type Department Care Team (Late st Contact Info) Description 05/02/[address] [address] Clint Stauffer MD [address] [place] [address] Medication Refill Social History Tobacco Use Types Packs/Day Years [...] on file Sexual Orientation Not on file documented as of this encounter Functional Status [...] 08/03/2016 7:03 PM Lakeshia Campos RN documented as of this encounter Mental Status * Because of a physical, mental or emotional condition, does this person have serious difficulty concentrating, remembering or making decisions? Answer Entry Date Author No 08/03/2016 7:03 PM Lakeshia Campos RN documented in this encounter Ordered Prescriptions Prescription Sig Dispense Quantity Refills Last Filled Start Date End Date sucralfate (CARAFATE) 1 gram Oral Tablet Take 1 Tablet by mouth 4 times daily. 360 Tablet 05/02/2025 documented in this encounter Plan of Treatment Upcoming Encounters Date Type Department Care Team (Late st Contact Info) Description 07/02/2025 1:20 PM EST Telemedicine [facility] Diabetes [place] [address] [address] Myriam Samuel MD [address] [place] [address] [address] documented as of this encounter Goals Goal Patient Goal Type Associated Problems Recent Progress Patient-Stated? Author Blood Pressure < 140/90 Blood Pressure 132/84(2024 9:19 AM EDT) No Madeline Wang LPN Maintain a healthy diet, exercise regularly and maintain an ideal body weight General No Lida Dye, ADELINE Stay Tobacco Free Lifestyle No Hardik, Lida, RN documented as of this encounter Visit Diagnoses Not on filedocumented in this encounter Discontinued Medications Medication Sig Discontinue Reason Start Date End Da te sucralfate (CARAFATE) 1 gram Oral Tablet Take 1 Tablet by mouth 4 times daily. Reorder 01/15/2025 05/02/2025 documented as of this encounter Additional Health Concerns Assessment Noted Time PHQ-9 Depression Total Score: 18 024 12:23 PM EST PHQ-2 Depression Total Score: 08/24/19 24 12:23 PM EST documented as of this encounter Care Teams Batching Operator Relationship Specialty Start Date End Date Clint Stauffer MD [address] [place] [address] PCP - General 08/20/10 Solomon Díaz MD [address] [place] [address] Internal Medicine-Gastroenterolog y 03/29/13 documented as of this encounter
--- OUTSIDE RECORDS SUMMARY | 2025-05-13 13:14 | XMS_ITS | Encounter Summary ---
Author Organization [place] [address] Care Team Providers Care Check Embosser Name Role Phone Clint Stauffer MD Primary Care Provider +- [phone] Solomon Díaz MD Unavailable [phone] Alla Fuchs VESSEL LINER Unavailable Unavai lable Emily Garcia CUPOLA MELTER HELPER Unavailable Unavai lable Encounter Details Date Type Department Care Team (Late st Contact Info) Description 04/04/2013 Orders Only [facility] [address] [facility] [address] [place] [address] Solomon Díaz MD [address] [place] [address] Social History Tobacco Use Types Packs/Day Years Used Date Smoking Tobacco: Never Smokeless Tobacco: Never Alcohol Use Standard Drinks/Week Comments Yes 0 (1 standard drink = 0.6 oz pur e alcohol) occasionally Sex and Gender Information Value Date Recorded Sex Assigned at Not on file Legal Sex Male 8:46 PM EDT Gender Identity Not on file Sexual Orientation Not on file documented as of this encounter Plan of Treatment Upcoming Encounters Date Type Department Care Team (Late st Contact Info) Description 07/02/2025 1:20 PM EST Telemedicine [place] [address] [facility] [address] [place] [address] Myriam Samuel MD [address] [facility] [address] [place] [address] documented as of this encounter Procedures Procedure Name Priority Date/Time Associated Diagnosis Comments [facility]ED COLONOSCOPY Routine 04/04/2013 2:00 PM EDT documented in this encounter Results * [facility]ED COLONOSCOPY (04/04/2013 2:00 PM EDT) 04/04/2013 2:00 PM EDT Impressions [facility] - 04/04/2013 2:49 PM EDT Normal mucosa in the whole colon. (Biopsy). Normal mucosa in the terminal ileum. Plan: Await pathology results Bentyl 20 mg Take 1 tablet by mouth every 6 hours as needed for cramps Follow-up office visit in 2 months This section is an excerpt of the full report, which can be found by clicking the hyperlink. us Solomon Díaz MD GI PROCEDURE ORDERABLES Fin al Result Performing Organization Address City/State/[facility] Co de Phone Number [facility] [address] [place] [address] documented in this encounter Visit Diagnoses Not on filedocumented in this encounter Care Teams Check Embosser Relationship Specialty Start Date End Date Clint Stauffer MD [address] [place] [address] PCP - General 08/20/10 Solomon Díaz MD [address] [place] [address] Internal Medicine-Gastroenterolo gy 03/29/13 Alla Fuchs LPN Hospital Education Coordinator Licensed Practical Nurse 12/14/18 12/19/18 Emily Garcia LCSW Dental Ceramist 07/20/23 11/07/23 documented as of this encounter
--- OUTSIDE RECORDS SUMMARY | 2025-05-13 13:14 | XMS_ITS | Clinical Summary ---
Author Organization [facility] Address [address] [place] [address] Care Team Providers Care Roller Setter Name Role Phone Clint Stauffer MD Primary Care Provider + [phone] Source Comments This information has been disclosed to you from confidential records protectedfrom disclosure by state law. You shall make no further disclosure of thisinformation without the specific, written, and informed release of theindividual to whom it pertains, or as otherwise permitted by law. A generalauthorization for the release of medical or other information is not sufficientfor the purposes of therelease of HIV test results or diagnoses. [id number] Allergies Active Allergy Reactions Criticality Noted Date Comments Clonidine Other (See Comments) 08/24/2021 Fatigue, visual blurring Medications No known medications Active Problems Problem Noted Date Diagnosed Date Trochanteric bursitis of right hip 10/17/2024 Neuropathy 10/17/2024 Chronic pain syndrome chronic back pain for over 10 years 08/06/2024 Pain of right hip chronic pain with range of mot ion 08/06/2024 Lumbar radiculopathy, chroni c chronic greater than 10 years in a predominant right L4 distribution 08/06/2024 DDD (degenerative disc disea se), lumbar somewhat greatest at the L3-4 L4-5, and less at the L5-S1 levels 08/06/2024 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 and possible other levels 08/06/2024 History of lumbar laminectom y 3 prior surgeries all by physician at [place] 2011 2013 2015 with actual worsening right leg pain after the last surgery 08/06/2024 Spondylolisthesis of lumbar region L4-5 greater than L3-4 greater than other levels 08/06/2024 Social History Tobacco Use Types Packs/Day Years Used Date Smoking Tobacco: Unknown Tobacco Cessation:Counseling Given: Not Answered PHQ-2 Answer Date Recorded PHQ-2 Total Score 0 08/03/2024 Yearly Questionnaire Answer Date Record ed Do you need any assistance w ith obtaining housing, meals, medication, transportation or medical equipment? No 08/03 Assistance needed for: Not on file 4 Yearly Questionnaire Answer Date Record ed Do you need any assistance w ith obtaining housing, meals, medication, transportation or medical equipment? No 08/03 Assistance needed for: Not on file 4 Yearly Questionnaire Answer Date Record ed Do you need any assistance w ith obtaining housing, meals, medication, transportation or medical equipment? No 08/03 Assistance needed for: Not on file Sex and Gender Information Value Date Recorded Sex Assigned at Not on file Legal Sex Male 2:55 PM EST Gender Identity Not on file Sexual Orientation Not on file Plan of Treatment Health Maintenance Due Date Last Done Comments Abnormal Colonoscopy Follow Up 1979 Hepatitis C Screening (MyChart) 1979 Alcohol Misuse Screening 1997 HIV Screening 1997 Immunization: DTaP/Tdap/Td ( 1 - Tdap) 1998 Immunization: Hepatitis B (1 of 3 - 19+ 3-dose series) 1998 Cologuard (FIT-DNA) 2024 Colonoscopy 2024 Colorectal Cancer Screening (MyChart) 2024 Stool Testing (gFOBT) 2024 Immunization: COVID-19 ( season) 2025 Immunization: Influenza (MyC yepez) (#1) 2025 Depression Screening 08/03/2025 08/03/2024 Immunization: Pneumococcal Aged Out N o longer eligible based on patient's age to complete this topic Insurance BLUE MEDICARE ADVANTAGE [facility] Care Address: [facility] [id number] [place] [address] Care Teams Roller Setter Relationship Specialty Start Date End Date Clint Stauffer MD [address] [place] [address] PCP - General Internal Medicine 08/03/24
--- OUTSIDE RECORDS SUMMARY | 2025-05-13 13:14 | XMS_ITS | Encounter Summary ---
Author Organization [place] [address] Care Team Providers Care Frame Opener Name Role Phone Clint Stauffer MD Primary Care Provider [phone]- [phone] Solomon Díaz MD Unavailable [phone] Alla Fuchs INSURANCE INSTRUCTOR Unavailable Unavai lable Emily Garcia MULTI PURPOSE MACHINE OPERATOR Unavailable Unavai lable Encounter Details Date Type Department Care Team (Late st Contact Info) Description 04/04/2013 Orders Only [facility] [address] [facility] [address] [place] [address] Solomon Díaz MD [address] [place] [address] Social History Tobacco Use Types Packs/Day Years [...] Info) Description 07/02/2025 1:20 PM EST Telemedicine [place] [address] [address] [facility] [address] [place] [address] Myriam Samuel MD [address] [facility] [address] [place] [address] documented as of this encounter Procedures Procedure Name Priority Date/Time Associated Diagnosis Comments GMED EGD Routine 04/04/2013 2:05 PM EDT documented in this encounter Results * [facility]ED EGD (04/04/2013 2:05 PM EDT) 04/04/2013 2:05 PM EDT Impressions [facility] - 04/04/2013 2:55 PM EDT Normal esophagus. Normal stomach. Normal mucosa in the whole examined duodenum. (Biopsy). Plan: Await pathology results Proceed with colonoscopy This section is an excerpt of the full report, which can be found by clicking the hyperlink. us Solomon Díaz MD GI PROCEDURE ORDERABLES Fin al Result [facility] [address] [place] [address] documented in this encounter Visit Diagnoses Not on filedocumented in this encounter Care Teams Frame Opener Relationship Specialty Start Date End Date Clint Stauffer MD [address] [place] [address] PCP - General 08/20/10 Solomon Díaz MD [address] [place] [address] Internal Medicine-Gastroenterolo gy 03/29/13 Alla Fuchs LPN Wireless Architect Licensed Practical Nurse 12/14/18 12/19/18 Emily Garcia LCSW Medical Office Technologist 07/20/23 11/07/23 documented as of this encounter
--- OUTSIDE RECORDS SUMMARY | 2025-05-13 13:15 | XMS_ITS | Clinical Summary ---
Author Organization [facility] Address [address] [place] [address] Phone Care Team Providers Care Neonatal Social Worker Name Role Phone Clint Stauffer MD Primary Care Provider [phone] Solomon Díaz MD Unavailable [phone] Allergies Active Allergy Reactions Criticality Noted Date Comments Clonidine Other (See Comments) 08/24/2021 Fatigue, visual blurring Hydrocodone Hives 01/10/2025 Lisinopril Cough 01/10/2025 Medications * This document contains information received from the source organization and may not represent a complete record from that organization. Cholecalciferol, Vitamin D3, 1,000 unit Oral CapsuleIndicatio ns:Vitamin D deficiency Take 2,000 Units by mouth daily. 06/22/20 18 Active amLODIPine (NORVASC) 10 mg Oral TabletIndication s:Essential hypertension Take 1 Tablet by mouth daily. 90 Tablet 05/29/20 24 Active Syringe with Needle, Disp, (BD LUER-ABDULKADIR SYRINGE) 3 mL 22 gauge x 1 Misc Syringe For use with Testosterone injections 12 Each 3 07/04/20 24 Active oxyCODONE 10 mg Oral Tablet Take 1 Tablet by mouth every 6 hours as needed for Acute Pain (R52) for up to 3 days. 12 Tablet 07/26/20 24 Active loratadine (CLARITIN) 10 mg Oral TabletIndication s:Right ear pain Take 1 Tablet by mouth daily. 08/13/20 24 Active pantoprazole (PROTONIX) 40 mg Oral Tablet, Delayed Release (E.C.)Indication s:Nonulcer dyspepsia Take 1 Tablet by mouth 2 times daily. 60 Tablet 10/12/19 25 Active dicyclomine (BENTYL) 20 mg Oral TabletIndication s:Irritable bowel syndrome with both constipation and diarrhea TAKE ONE (1) TABLET BY MOUTH FOUR (4) TIMES DAILY NEEDED (ABDOMINAL PAIN). 120 Tablet 1 11/16/19 25 Active Syringe with Needle, Disp, (BD LUER-ABDULKADIR SYRINGE) 3 mL 21 gauge x 1 1/2 Misc Syringe FOR USE WITH TESTOSTERONE INJECTIONS - 12 Each 11/15/19 25 Active pantoprazole (PROTONIX) 40 mg Oral Tablet, Delayed Release (E.C.)Indication s:Nonulcer dyspepsia TAKE ONE (1) TABLET BY MOUTH TWICE DAILY 200 Tablet 01/03/20 25 Active testosterone cypionate (DEPOTESTOTERONE CYPIONATE) 200 mg/mL IM OilIndications:H ypogonadism male Inject 0.5 mL into the muscle once a week. 4 mL 5 01/02/20 25 Active metoprolol succinate (TOPROL-XL) 50 mg Oral Tablet Sustained Release 24 hr Take 50 mg by mouth 2 times daily. 01/02/20 25 Active Syringe with Needle, Disp, 3 mL 23 gauge x 1 1/2 Misc SyringeIndicatio ns:Hypogonadism male Use to inject testosterone once weekly 12 Each 1 03/01/20 25 Active sucralfate (CARAFATE) 1 gram Oral Tablet Take 1 Tablet by mouth 4 times daily. 360 Tablet 05/02/20 25 Active sucralfate (CARAFATE) 1 gram Oral Tablet Take 1 Tablet by mouth 4 times daily. 120 Tablet 1 01/16/20 25 025 Discontin ued(Reord er) Active Problems Patient Care Coordination No te Formatting of this note migh t be different from the original. DISMISSED from [facility] - 04/23/24 [facility] - Controlled Substance Protocol Completed: A. Informed Consent Statement signed (ONCE) 09/29/23 B. Controlled Substance Agreement signed (ONCE) 09/29/23 C. Comprehensive Urine Drug Screen was performed (YEARLY) (03/19/24) D. Teodoro report completed (EVERY 3 MONTHS) 03/16/24 E. Screening tool for addiction (SOAPP) completed (YEARLY) F. Need for controlled substance is documented (EVERY VISIT) G. Pain Scale and or Functional capacity documented (EVERY VISIT)03/19/24 Pharmacy: [place] [address] - [address] - [phone] Testosterone: (DO NOT DELETE) [facility] Date of Last Contract / Agmt: 03/19/2024 /RDC/ MY Date of Last Teodoro: 01/01/2025 /RDC/ MY Date of Last SOAPP Score: 03/19/2024 /RDC/ MY Problem Noted Date Diagnosed Date Epigastric abdominal pain 01/15/2025 Hyperglycemia 01/14/2025 Peripheral neuropathy, idiopathic 01/10/2025 Right ear pain 08/13/2024 Right hip pain 08/13/2024 Anxiety 08/13/2024 Groin pain, unspecified laterality 08/13/[address] 11/18/2023 Mild ascending aorta dilatation 11/15/2023 Overview (11/15/2023): ECHO on 08/02/23 Lung nodules 10/17/2023 Elevated erythrocyte sedimentation rate 07/20/20 Malaise and fatigue 06/29/2023 Grief 06/22/2023 Blurred vision 05/11/2023 Muscle spasm 05/11/2023 Lipoma of torso 05/11/2023 Arthritis 11/03/2022 Abrasion 08/24/2021 Skin nodule 08/24/2021 Bilateral hand numbness 08/24/2021 Pain in pelvis 08/24/2021 Somatic Symptom Disorder, pe rsistent, mild-moderate, with predominant pain 09/03/2020 Arthritis of right hip 07/23/2020 Thrombocytosis 04/05/2020 Arthralgia 05/08/2019 Right foot drop 12/13/2018 Gastroesophageal reflux disease without esophagi tis 07/27/2018 Folliculitis 07/27/2018 Reactive depression 06/07/2017 Lumbar disc disease 08/10/2016 Heart murmur 08/10/2016 Obesity 06/18/2016 Irritable bowel syndrome wit h both constipation and diarrhea 2016 Essential hypertension 2016 Chronic fatigue 09/16/2015 Depression 09/16/2015 Hyperlipidemia 06/09/2015 Nonulcer dyspepsia 03/12/2015 Numbness of foot 03/12/2015 Memory loss 03/12/2015 Status post lumbar surgery 10/02/2013 Glaucoma of both eyes 06/20/2013 Overview (06/20/2013): Uses [facility] in [place] Sciatica 05/14/2013 Insufficient sleep syndrome 12/28/2012 Fatty liver 10/19/2012 Hypogonadism male 02/03/2011 Excessive sleepiness 02/03/2011 Decreased libido 02/03/2011 DON (obstructive sleep apnea) 02/03/2011 Vitamin D deficiency 02/03/2011 Fibromyalgia syndrome Resolved Problems Problem Noted Date Diagnosed Date Resolved Date Chest pain at rest 06/22/2023 5 Axillary mass, right 05/11/2023 023 Left-sided chest wall pain 09/30/2017 1 08/22/2017 History of tension headache 06/07/2017 06/22/2018 Skin nodule 06/07/2017 06/22/2018 Neck pain 06/07/2017 06/22/2018 Acute right-sided low back p ain with right-sided sciatica 08/02/2016 06/22/2018 Right elbow pain 06/24/2016 06/22/2018 Proctitis 06/18/2016 06/22/2018 Perirectal abscess 06/18/2016 9 Acute midline low back pain without sciatica 6 06/22/2018 Sacral back pain 06/18/2016 06/22/2018 Left foot pain 2016 06/22/2018 Right foot pain 03/12/2015 06/22/2018 Neck pain 03/12/2015 06/22/2018 S/P appendectomy 10/02/2013 10/08/2013 Sinusitis 10/02/2013 06/22/2018 Dyspnea 06/12/2013 06/22/2018 Arm pain 06/12/2013 06/22/2018 Abdominal pain 12/28/2012 06/22/2018 Rash 12/28/2012 06/22/2018 Hip pain, bilateral 09/14/2012 06/22/20 18 Leg fatigue 09/14/2012 06/22/2018 Acute pancreatitis 09/12/2012 3 Encounters Date Type Department Care Team Description 05/02/2025 Refill [facility] [address] [place] [address] Clint Stauffer MD Medication Refill 03/05/2025 Telephone [facility] [address] [place] [address] Clint Stauffer MD Results 03/02/2025 12:59 PM EDT - 03/02/2025 11:59 PM EDT Hospital Encounter [facility] [address] [facility] [place] [phone] Clint Stauffer MD Peripheral neuropathy, idiopathic; Hyperglycemia; Pure hypercholesterolemia Discharge Disposition: Home or Self Care 03/02/2025 12:25 PM EDT - 03/02/2025 12:58 PM EDT Hospital Encounter [facility] [address] [place] [address] Clint Stauffer MD Epigastric abdominal pain Discharge Disposition: Home or Self Care 02/28/[address] [facility] [address] [facility] [address] [place] [address] Myriam Samuel MD Medication Refill from Last 3 Months Surgical History Surgery Date Site/Laterality Comments VASECTOMY 08/15/2005 - 08/14/2006 KNEE SURGERY x3 scopes LYMPH NODE BIOPSY back COLONOSCOPY x2 LUMBAR DISC SURGERY 06/22/2013 Back/N/A LUMBAR LAMINECTOMY MESIAL FACETECTOMY L4-5 LEFT; Surgeon: Adrián Corona MD; Location: [facility]; Service: Neurosurgery APPENDECTOMY 09/05/13 Dr Arzola [place] FOOT SURGERY foot surgery pt not sure which foot -/ 05/2015 SHOULDER ARTHROSCOPY 08/18/2015 Shoulder/Left LEFT SHOULDER ARTHROSCOPIC SUBACROMIAL DECOMPRESSION AND ROTATOR CUFF DEBRIDEMENT; Surgeon: Armando Cardozo MD; Location: [facility]; Service: Orthopedics UPPER GASTROINTESTINAL ENDOSCOPY 08/15/2012 - 08/14/2013 BACK SURGERY LUMBAR DISC SURGERY 11/28/2018 Back/Right REDO LUMBAR LAMINECTOMY DISCECTOMY L3/4, L4/5 RIGHT; Surgeon: Adrián Corona MD; Location: [facility]; Service: Neurosurgery Medical History Medical History Date Comments Fibromyalgia syndrome Hypogonadism male 02/03/2011 Fatigue 02/03/2011 Decreased libido 02/03/2011 Vitamin D deficiency 02/03/2011 Pancreatitis per pt 09/2012 Status post lumbar surgery 10/02/2013 S/P appendectomy 10/02/2013 Arthritis Pancreatitis h/o - hospitaliz ed 2012 Hyperlipidemia no medication Liver disease elevated,recent [problem with pancreas]on protonix Hypertension h/o - stopped me dicatioon 03/2014, medication made him feel horrible states he told his physician he is no longer taking med Glaucoma Post-operative nausea and vomiting DON (obstructive sleep apnea) 02/03/2011 c pap Heart murmur Depression GERD (gastroesophageal reflux disease) Anxiety Family History Medical History Relation Name Comments Cancer Maternal Grandfather Mauricio [place]en[place]ro Diabetes Maternal Grandfather Mauricio [place] Cancer Maternal Grandmother Britni Lisa Diabetes Maternal Grandmother Britni Szymanski rubi [place] Crohn's Disease Other niece and nephew Crohn's Disease Paternal Aunt Yang [place]en[place]ro Cancer Paternal Grandfather Yang [place] Diabetes Paternal Grandfather Yang [place] Heart Disease Paternal Grandfather Yang [place] Cancer Paternal Grandmother Apple montenegro Diabetes Paternal Grandmother Apple montenegro Liver Disease Paternal Uncle 1 Liver Cancer Paternal Uncle 2 Anesth Problems Neg Hx Other Neg Hx Unknown Neg Hx Relation Name Status Comments Maternal Grandfather Mauricio [place]en[place]ro Maternal Grandmother Britni Lisa Other niece and nephew Alive Paternal Aunt Yang Montenegro Paternal Grandfather Yang Monten[place]ro Paternal Grandmother Apple montenegro Paternal Uncle 1 Paternal Uncle 2 Social History Tobacco Use Types Packs/Day Years Used Date Smoking Tobacco: Former Cigarettes 1 13 1 - 06/12/2008 Smokeless Tobacco: Never Tobacco Cessation:Counseling Given: Not Answered Alcohol Use Standard Drinks/Week Comments Yes 0 (1 standard drink = 0.6 oz pur e alcohol) occasionally PHQ-2 Answer Date Recorded PHQ-2 Total Score 6 08/24/2023 Sex and Gender Information Value Date Recorded Sex Assigned at Not on file Legal Sex Male 8:46 PM EDT Gender Identity Not on file Sexual Orientation Not on file Last Filed Vital Signs Vital Sign Reading Time Taken Comments Blood Pressure 132/84 01/10/2025 9:19 AM EDT Pulse 80 01/10/2025 9:19 AM EDT Temperature 37.2 C (98.9 F) 08/13/2024 10:24 AM EST Respiratory Rate 20 07/26/2024 4:41 PM EST Oxygen Saturation 98% 01/10/2025 9:19 AM EDT Inhaled Oxygen Concentration - - Weight 102.1 kg (225 lb) 01/10/2025 9:19 AM EDT Height 182.9 cm (6') 06/21/2024 8:34 AM EST Body Mass Index 30.52 06/21/2024 8:34 AM EST Plan of Treatment Upcoming Encounters Date Type Department Care Team (Late st Contact Info) Description 07/02/2025 1:[address] [facility] [address] [facility] [address] [place] [phone] Myriam Samuel MD [address] [facility] [address] [place] [phone] Health Maintenance Due Date Last Done Comments Wellness Exam Medicare 1982 DTaP/TDaP/Td (1 - Tdap) 1998 Hepatitis B Vaccine (1 of 3 - 19+ 3-dose series) 1998 Cologuard 2024 Colon Cancer Screening 2024 Colonoscopy 2024 04/04/2013, 04/04/2013 FIT 2024 Sigmoidoscopy 2024 Virtual Colonography 2024 COVID-19 Vaccine (1 - 2023-2 5 season) 2025 Influenza Vaccine (#1) 2025 7 (Declined), 2016 (Declined), 09/16/2015 (Declined) Meningococcal B Vaccine Aged Out No l onger eligible based on patient's age to complete this topic Pneumococcal Vaccine 0-49 Aged Out No longer eligible based on patient's age to complete this topic Goals Goal Patient Goal Type Associated Problems Recent Progress Patient-Stated? Author Blood Pressure < 140/90 Blood Pressure 132/84(2024 9:19 AM EDT) No Madeline Wang LPN Maintain a healthy diet, exercise regularly and maintain an ideal body weight General No Lida Dye RN Stay Tobacco Free Lifestyle No Lida Dye RN Medical Devices Explanted Type Area Private Advisor Device Identifier Shelf Expiration Date Model / Serial / Lot [place] Lead-10/07/2020 Implanted:Qty: 1 on 10/07/2020 by Woody Spears MD Lead Spine Lumbar [employer] 08/28/2024 [id number] / / [id number] [place] Lead-10/07/2020 Implanted:Qty: 1 on 10/07/2020 by Woody Spears MD Lead 08/28/2024 / / [id number] Procedures Procedure Name Priority Date/Time Associated Diagnosis Comments LIPOPROTEIN (A) Routine 03/02/2025 12:56 PM EDT Pure hypercholesterolemia APOLIPOPROTEIN B-REF LAB Routine 03/02/2025 12:56 PM EDT Pure hypercholesterolemia BASIC METABOLIC PANEL Routine 03/02/2025 12:56 PM EDT Hyperglycemia HEMOGLOBIN A1C Routine 03/02/2025 12:56 PM EDT Hyperglycemia THYROID STIMULATING HORMONE Routine 03/02/2025 12:56 PM EDT Peripheral neuropathy, idiopathic KAPPA/LAMBDA FREE LIGHT CHAINS Routine 03/02/2025 12:56 PM EDT Peripheral neuropathy, idiopathic SERUM IMMUNOTYPING Routine 03/02/2025 12:56 PM EDT Peripheral neuropathy, idiopathic VITAMIN B12/ FOLIC ACID Routine 03/02/2025 12:56 PM EDT Peripheral neuropathy, idiopathic US RIGHT UPPER QUADRANT Routine 03/02/2025 12:45 PM EDT Epigastric abdominal pain GMED COLONOSCOPY Routine 04/04/2013 2:00 PM EDT from Last 3 Months or Most Recently Relevant to Health Maintenance Results * (ABNORMAL) SERUM IMMUNOTYPING (03/02/2025 12:56 PM EDT) IgA 448(H) 70 - 400 mg/dL 03/04/2025 11:41 AM EDT [facility] IgG 1,254 700 - 1,600 mg/dL 03/04/2025 11:41 AM EDT [facility] IgM 206 40 - 230 mg/dL 03/04/2025 11:41 AM EDT [facility] Albumin SPE 4.4 3.1 - 5.0 gm/dL 03/04/2025 11:41 AM EDT [facility] Alpha 1 Globulin 0.2 0.1 - 0.3 gm/dL 03/04/2025 11:41 AM EDT [facility] Alpha 2 Globulin 0.6 0.5 - 1.0 gm/dL 03/04/2025 11:41 AM EDT [facility] Beta Globulin 1.1 0.5 - 1.4 gm/dL 03/04/2025 11:41 AM EDT [facility] Gamma Globulin JAILENE 1.2 0.6 - 1.6 gm/dL 03/04/2025 11:41 AM EDT [facility] Total Protein 7.5 6.4 - 8.3 gm/dL 03/04/2025 11:41 AM EDT [facility] SPE/IT Interp M-protein not apparent on serum protein electrophoresis. M-protein not apparent on immunotyping (IT). This test has been reviewed and approved by Juan R Alcantar MD, TITUS. 03/04/2025 11:41 AM EDT [facility] Blood VENOUS BLOOD / Unknown Venipuncture / Unknown 03/02/2025 12:56 PM EDT 03/02/2025 1:02 PM EDT us Clint Stauffer MD IMMUNOLOGY ORDERABLES Chari valiente Result [facility] [address] [facility] , [place] [address] * LIPOPROTEIN (A) (03/02/2025 12:56 PM EDT) [facility] Lipoprotein (a) 26 <30 mg/dL 11:27 PM EDT [facility] Blood VENOUS BLOOD / Unknown Venipuncture / Unknown 03/02/2025 12:56 PM EDT 03/02/2025 1:02 PM EDT Clint Stauffer MD CHEMISTRY ORDERABLES Final Result [facility] [address] [facility] [address] , [address] [place] [id number] * APOLIPOPROTEIN B-REF LAB (03/02/2025 12:56 PM EDT) [facility] Apolipoprotein B 108 66 - 133 mg/dL 03/05/2025 8:20 AM EDT [facility] Comment: REFERENCE INTERVAL: Apolipoprotein B A desirable fasting serum Apo B concentration for the prevention of atherosclerotic cardiovascular disease in adults is less than 90 mg/dL. A fasting serum Apo B concentration of 130 mg/dL or greater corresponds to a LDL cholesterol concentration greater than 160 mg/dL and constitutes a risk enhancing factor for atherosclerotic cardiovascular disease in adults. Performed By: [facility] [address] [place] [address] Junior Automation Engineer: Woody Ly MD, PhD CLIA Number: [id number] Blood VENOUS BLOOD / Unknown Venipuncture / Unknown 03/02/2025 12:56 PM EDT 03/02/2025 1:03 PM EDT us Clint Stauffer MD CHEMISTRY ORDERABLES Final Result Performing Organization Address City/[facility]/ZIP Co de Phone Number [facility] [address] [place] [address] * VITAMIN B12/ FOLIC ACID (03/02/2025 12:56 PM EDT) [facility] Vitamin B12 543 232 - 1,245 pg/mL 03/02/2025 11:10 PM EDT [facility], [facility] Folate >16.00 >=4.50 ng/mL 03/02/2025 11:10 PM EDT [facility], [facility] Blood VENOUS BLOOD / Unknown Venipuncture / Unknown 03/02/2025 12:56 PM EDT 03/02/2025 1:02 PM EDT Narrative [facility], [facility] - 03/02/2025 11:10 PM EDT Ingestion of eileen doses of biotin (>5 mg/day) taken within 8 hours of drawing blood sample can interfere with this immunoassay test. Clint Stauffer MD CHEMISTRY ORDERABLES Final Result Performing Organization Address [facility] de Phone Number [facility] , [place] [address] * KAPPA/LAMBDA FREE LIGHT CHAINS (03/02/2025 12:56 PM EDT) Pathologist [facility] [place] Free Light Chains 17.95 3.30 - 19.40 mg/L 03/04/2025 8:56 AM EDT [facility], [facility] Lambda Free Light Chains 13.88 5.70 - 26.30 mg/L 03/04/2025 8:56 AM EDT [facility] [place]/Lambda FLC Ratio 1.29 0.26 - 1.65 03/04/2025 8:56 AM EDT [facility], [facility] Blood VENOUS BLOOD / Unknown Venipuncture / Unknown 03/02/2025 12:56 PM EDT 03/02/2025 1:02 PM EDT Clint Stauffer MD CHEMISTRY ORDERABLES Final Result Performing Organization Address [facility] Co de Phone Number [facility] , [place] [address] * THYROID STIMULATING HORMONE (03/02/2025 12:56 PM EDT) Pathologist [facility] TSH 1.200 0.270 - 4.200 mcIU/mL 03/02/2025 11:02 PM EDT [facility] Blood VENOUS BLOOD / Unknown Venipuncture / Unknown 03/02/2025 12:56 PM EDT 03/02/2025 1:02 PM EDT Narrative [facility] - 03/02/2025 11:02 PM EDT Ingestion of eileen doses of biotin (>5 mg/day) taken within 8 hours of drawing blood sample can interfere with this immunoassay test. Clint Stauffer MD CHEMISTRY ORDERABLES Final Result Performing Organization Address [facility] Co de Phone Number [facility] , [place] [address] * (ABNORMAL) HEMOGLOBIN A1C (03/02/2025 12:56 PM EDT) Pathologist [facility] Hgb A1C 5.8(H) 4.2 - 5.6 % 03/02/2025 10:49 PM EDT [facility] Est. Avg Glucose 120 mg/dL 03/02/2025 10:49 PM EDT [facility] Blood VENOUS BLOOD / Unknown Venipuncture / Unknown 03/02/2025 12:56 PM EDT 03/02/2025 1:02 PM EDT Narrative [facility] - 03/02/2025 10:49 PM EDT REFERENCE RANGE: Normal: 4.0-5.6% Pre-diabetes: 5.7-6.4% Provisional diagnosis of diabetes: >6.4% Hgb F>10% and anything which shortens red cell survival, such as hemolytic anemia, or unstable hemoglobin variants such as HbSS, HbSC, or HbCC, will lower the HbA1c value associated with a given level of glycemic control. Clint Stauffer MD CHEMISTRY ORDERABLES Final Result Performing Organization Address [facility] Co de Phone Number [facility] , [place] [address] * (ABNORMAL) BASIC METABOLIC PANEL (03/02/2025 12:56 PM EDT) Pathologist [facility] Sodium 137 136 - 145 mmol/L 03/02/2025 11:02 PM EDT [facility] Potassium 4.5 3.5 - 5.0 mmol/L 03/02/2025 11:02 PM EDT [facility] Chloride 99 98 - 107 mmol/L 03/02/2025 11:02 PM EDT [facility] Total CO2 27 22 - 29 mmol/L 03/02/2025 11:02 PM EDT [facility] Anion Gap 11 7 - 16 mmol/L 03/02/2025 11:02 PM EDT [facility] Calcium 9.8 8.6 - 10.4 mg/dL 03/02/2025 11:02 PM EDT [facility] Glucose Lvl 108(H) 70 - 99 mg/dL 03/02/2025 11:02 PM EDT [facility] BUN 12 6 - 20 mg/dL 03/02/2025 11:02 PM EDT [facility] Creatinine 0.90 0.67 - 1.30 mg/dL 03/02/2025 11:02 PM EDT [facility] eGFR (CKD-EPIcr 2020) 107 >=60 mL/min/1.7 3 m2 03/02/2025 11:02 PM EDT [facility] Comment:Estimated GFR was ca lculated using the CKD-EPIcr (2020) equation refit without race. The equation is recommended by the National Kidney Foundation - [place] [employer] of Nephrology Task Force. Blood VENOUS BLOOD / Unknown Venipuncture / Unknown 03/02/2025 12:56 PM EDT 03/02/2025 1:02 PM EDT us Clint Stauffer MD CHEMISTRY ORDERABLES Final Result [facility] [address] [facility] , [address] [place] [id number] * US RIGHT UPPER QUADRANT (03/02/2025 12:45 PM EDT) Anatomical Region Laterality Modality Abdomen Ultrasound 03/02/2025 12:4 5 PM EDT Impressions 03/02/2025 1:16 PM EDT Unremarkable right upper quadrant ultrasound. - Note: Radiology results need to be interpreted within a comprehensive clinical context. If you have questions about the radiology report, please contact the office of the ordering clinician. Narrative 03/02/2025 1:16 PM EDT US RIGHT UPPER QUADRANT, 03/02/2025 12:45 PM CLINICAL HISTORY: R10.13-Epigastric also-BLQ-93-CM. COMPARISON: None. PROCEDURE COMMENTS: Ultrasound examination of the right upper quadrant performed by the technologist. Sent to PACS along with tech notes for radiologist review. FINDINGS: Gallbladder: Normal. Jeffery's sign: Negative. Liver: Normal in size and echotexture. No focal lesion. Common bile duct: Measures 3 mm. (Normal is 6mm or less. If there has been cholecystectomy, normal is 10mm or less.) Pancreas: Visualized portions are normal. Limited by bowel gas. Other: Right kidney non-hydronephrotic and measures 12.1 x 5.4 x 5.7 cm. Procedure Note Lan Kirkpatrick MD - 03/02/2025 US RIGHT UPPER QUADRANT, 03/02/2025 12:45 PM CLINICAL HISTORY: R10.13-Epigastric gtma-AOR-50-CM. COMPARISON: None. PROCEDURE COMMENTS: Ultrasound examination of the right upper quadrantperformed by the technologist. Sent to PACS along with tech notes for radiologistreview. FINDINGS: Gallbladder: Normal. Jeffery's sign: Negative. Liver: Normal in size and echotexture. No focal lesion. Common bile duct: Measures 3 mm. (Normal is 6mm or less. If there hasbeen cholecystectomy, normal is 10mm or less.) Pancreas: Visualized portions are normal. Limited by bowel gas. Other: Right kidney non-hydronephrotic and measures 12.1 x 5.4 x 5.7cm. IMPRESSION: Unremarkable right upper quadrant ultrasound. - Note: Radiology results need to be interpreted within a comprehensiveclinical context. If you have questions about the radiology report, please contactthe office of the ordering clinician. us Clint Stauffer MD IMG US ORDERABLES Final Re sult * [facility] COLONOSCOPY (04/04/2013 2:00 PM EDT) 04/04/2013 2:00 PM EDT Impressions [facility] - 04/04/2013 2:49 PM EDT [...] MD GI PROCEDURE ORDERABLES Fin al Result [facility] [address] [place] [address] from Last 3 Months or Most Recently Relevant to Health Maintenance Insurance DEAN KUNZ MR DEAN KUNZ MR DEAN KUNZ MR Advance Directives For more information, please contact: [phone] * Full Code (Latest Code Status on File) Date Activated Date Inactivated Comments 11/28/2018 6:36 PM 12/01/2018 11:17 PM * Full Code Date Activated Date Inactivated Comments 08/03/2016 6:55 PM 08/03/2016 11:23 PM * Full Code Date Activated Date Inactivated Comments 06/19/2016 8:49 AM 06/20/2016 3:10 PM * Full Code Date Activated Date Inactivated Comments 08/18/2015 12:59 PM 08/18/2015 7:02 PM Care Teams Neonatal Social Worker Relationship Specialty Start Date End Date Clint Stauffer MD [address] [place] [address] PCP - General 08/20/10 Solomon Díaz MD [address] [place] [address] Internal Medicine-Gastroenterolog y 03/29/13
--- OUTSIDE RECORDS SUMMARY | 2025-05-13 13:15 | XMS_ITS | Clinical Summary ---
Author Organization [facility] Address [address] [place] [address] Phone Care Team Providers Care Typewriter Operator Automatic Name Role Phone Pcp, Pending Only MD Primary Care Provider Medications No known medications Active Problems No known active problems Social History Tobacco Use Types Packs/Day Years Used Date Smoking Tobacco: Never Smokeless Tobacco: Never Tobacco Cessation:Counseling Given: No Sex and Gender Information Value Date Recorded Sex Assigned at Not on file Legal Sex Male 11:44 AM EST Gender Identity Not on file Sexual Orientation Not on file Plan of Treatment Health Maintenance Due Date Last Done Comments DTap,Tdap,and Td (1 - Tdap) 1990 HPV (1 - 3-dose SCDM series) 2006 Colonoscopy 2024 Influenza Vaccine (#1) 2025 RSV Vaccine (60+ or ) (1 - 1-dose 75+ series) 2054 Meningococcal conjugate jerod nt 4 (MCV4) Aged Out No longer eligible b ased on patient's age to complete this topic Pneumococcal 0-49 Aged Out No longer eligible based on patient's age to complete this topic RSV Immunization (<20 months) Aged Out No longer eligible based on patient's age to complete this topic Insurance [employer] Care Teams Typewriter Operator Automatic Relationship Specialty Start Date End Date Pcp, Pending Only, [place] [address] PCP - General Internal Medicine 09/04/24
== END 2025-05-13 23:59 | disposition home or self-care (01) ==
LOC: RT 13:11
PROVIDERS: PCP Family Medicine; Visit Provider Nurse Practitioner Family
DX: I08.2 Rheumatic disorders of both aortic and tricuspid valves (principal); I10 Essential (primary) hypertension; R60.9 Edema, unspecified
CPT/HCPCS: 93306